=== PATIENT | female | born 1985 | race Caucasian/White ===

== ENCOUNTER 2016-02-12 04:58 | Inpatient (IN) | payer BC, OTHER ==
[2016-02-12] MEDS ORDERED: LACTATED RINGERS 1,000 ML IV ONE (05:50)
[2016-02-12] MEDS ORDERED: CITRIC ACID-SODIUM CITRATE 15 ML CUP PO ONE (05:50)
[2016-02-12] MEDS ORDERED: LACTATED RINGERS 1,000 ML IV SCH (06:00)
[2016-02-12] MEDS ORDERED: ceFAZolin 1,000 MG VIAL ONE (06:00)
[2016-02-12] MEDS ORDERED: ONDANSETRON 4 MG/2 ML VIAL ONE (06:00)
[2016-02-12] MEDS ORDERED: PROPOFOL 10 MG/ML 20 ML VIAL IV ONE (06:00)
[2016-02-12] MEDS ORDERED: LIDOCAINE 1% INJ 10MG/ML (20 ML MDV) ONE (06:00)
[2016-02-12] MEDS ORDERED: fentaNYL (PF) 50 MCG/ML 2 ML AMP ONE (06:00)
[2016-02-12] MEDS: LACTATED RINGERS 1,000 ML IV SCH ×3 (06:00→18:33)
[2016-02-12] MEDS ORDERED: SUCCINYLCHOLINE CHLORIDE 100 MG/5 ML SYR IV ONE (06:00)
[2016-02-12] MEDS ORDERED: PHENYLEPHRINE-0.9% NACL SYG 1 MG/10 ML SYRINGE ONE (06:00)
[2016-02-12] MEDS ORDERED: KETOROLAC 30 MG/ML 1 ML VIAL ONE (06:00)
[2016-02-12] MEDS ORDERED: OXYTOCIN 10 UNIT/ML 1 ML VIAL IM ONE (06:00)
[2016-02-12 06:15] LABS: CH 29.5; CHCM 32.8; HCT 33.4 % (34.0-46.0); HDW 2.65; HGB 10.7 gm/dL (11.4-16.0); MCH 28.8 pg (25.0-35.0); MCHC 31.9 g/dL (31.0-37.0); MCV 90.4 fL (80.0-100.0); RDW 12.9 % (11.5-15.5); WBC 13.9 k/uL (3.8-10.6)
[2016-02-12 06:58] LABS: Appearance,Urine Clear (Clear); Bilirubin,Urine Negative (Negative); Glucose,Urine (UA) Negative (Negative); Ketones,Urine Negative (Negative); Leukocyte Esterase,Urine Negative (Negative); Nitrite,Urine Negative (Negative); Protein,Urine Negative (Negative); Specific Gravity,Urine 1.004 (1.001-1.035); UA Billing (MACRO vs. MICRO) CHEM; Urobilinogen,Urine <2.0 mg/dL (<2.0)
--- NOTE | 2016-02-12 07:00 | P.HPOB ---
History of Present Illness H&P Date: 02/12/16 Chief Complaint: Abdominal pain and vaginal bleeding at 26 weeks This is a 31-year-old 9 para 6125 woman who presents complaining of 2 hours of severe abdominal pain and vaginal bleeding. She has an estimated due date of 05/20/2016 based on an 18 week ultrasound. She had late care. She has received care prior to this from Dr. Vivar at [facility]. She reports having had the flu and several of her children in the house being sick over the last week and when she began to have abdominal pain she thought it was secondary to GI distress. When she began having light vaginal bleeding she called EMS who transported her to the hospital. On initial evaluation on labor and delivery triage she does appear to be valeria irregularly and is uncomfortable. Examination reveals tense bulging bag of fluids entirely filling the vagina. The cervix is not palpable beyond this. Bedside ultrasound reveals infant to be in the complete breech presentation. Her obstetric history is significant for 6 prior term vaginal deliveries the most recent of which was in March 2015. Unfortunately this infant at 3 months of life from "aspiration". Patient reports history of fibromyalgia, arthritis, scoliosis and degenerative disks in her back. She was taking Percocet, Flexeril and Neurontin when she found out she was . She has been trying to wean off of these medications. Review of Systems All systems: negative Past Medical History Past Medical History: Fibromyalgia, Osteoarthritis (OA) Additional Past Medical History / Comment(s): back problems, degnerating discs, neuropathy, carple tunnel, manic depressive disorder,herniated disks History of Any Multi-Drug Resistant Organisms: None Reported Past Surgical History: Orthopedic Surgery, Tonsillectomy Past Anesthesia/Blood Transfusion Reactions: No Reported Reaction Past Psychological History: Anxiety, Bipolar, Depression Smoking Status: Current every day smoker Past Alcohol Use History: None Reported Past Drug Use History: Marijuana, Opiates, Prescription Drug Abuse - Past Family History Mother Family Medical History: Hypertension, Osteoarthritis (OA) Father Family Medical History: Unable to Obtain Medications and Allergies Home Medications Medication Instructions Recorded Confirmed Type Gabapentin [Gabapentin] 1 tab PO BID 06/27/15 06/27/15 History clonazePAM [KlonoPIN] 1 mg PO BID PRN 06/27/15 06/27/15 History oxyCODONE HCL/ACETAMINOPHEN 1 tab PO QID PRN 06/27/15 06/27/15 History [Percocet 10-325 mg] Allergies Allergy/AdvReac Type Severity Reaction Status Date / Time clarithromycin [From Biaxin] Allergy Rash/Hives Verified 02/12/16 05:09 methylprednisolone Allergy Rash/Hives Verified 02/12/16 05:09 [From Medrol] Exam - Vital Signs Vital signs: Intake and Output 02/11/16 02/11/16 02/12/16 14:59 22:59 06:59 Other: Weight 210 kg Patient Weight 02/12/16 06:59 Weight 210 kg This is an uncomfortable-appearing, distraught female. HEENT exam reveals poor dentition. She has a raspy cough. Lungs are clear anteriorly. The heart is a regular rate and rhythm. The abdomen is gravid with a fundal height approximately 2 cm above the umbilicus. Palpable contractions every 2-4 minutes. The uterus is nontender. She has a small amount of bloody show on pelvic examination. On bimanual exam there is a very tense bulging bag of fluids in the vagina that is completely filling the vagina. I cannot tell if the cervix is completely dilated or if the tense bag is hourglassing through the cervix. Bedside ultrasound reveals in the complete breech presentation with head and feet at the maternal right upper quadrant. On ultrasound it appears as though the cervix may not be completely dilated and membranes are hourglassing through the cervix that may be 3-4 cm dilated. heart tones show a baseline of approximately 150 bpm with intermittent variable heart rate decelerations. Results Result Diagrams: 02/12/16 06:05 Abnormal Lab Results - Last 24 Hours (Table) 02/12/16 Range/Units 06:05 WBC 13.9 H (3.8-10.6) k/uL RBC 3.70 L (3.80-5.40) m/uL Hgb 10.7 L (11.4-16.0) gm/dL Hct 33.4 L (34.0-46.0) % Assessment and Plan (1) 26 weeks gestation of Status: Acute (2) Breech presentation Status: Acute (3) labor Status: Acute (4) Insufficient care Status: Acute Plan: This is a 31-year-old 9 para 6125 woman who presents at 26-0/7 weeks gestation in spontaneous labor. is in the complete breech presentation. Patient is counseled regarding the precarious nature of the situation at this gestational age. The technical services analyst and anesthesiologist have been notified. I recommended primary low transverse section, although assessment of the low uterine segment at the time of may necessitate a classical section. Basic risks of the procedure reviewed with the patient at the bedside including bleeding, transfusion and potential maternal or injury. I also reviewed with her at this gestational age that once the infant is stabilized he or she will be transferred to a tertiary care facility. Laboratory data is currently pending.
[2016-02-12] MEDS ORDERED: NALOXONE 0.4 MG/ML 1 ML VIAL IV PRN (07:06)
[2016-02-12] MEDS ORDERED: ACETAMINOPHEN TAB 325 MG TAB PO PRN (07:08)
[2016-02-12] MEDS ORDERED: diphenhydrAMINE 50 MG/ML 1 ML VIAL IVP PRN ×2 (07:08)
[2016-02-12] MEDS ORDERED: Acetaminophen-Codeine 300-30mg TAB PO PRN ×2 (07:08)
[2016-02-12] MEDS ORDERED: ZOLPIDEM 5 MG TAB PO PRN (07:08)
[2016-02-12] MEDS ORDERED: diphenhydrAMINE 25 MG CAP PO PRN (07:08)
[2016-02-12] MEDS ORDERED: diphenhydrAMINE 50 MG CAP PO PRN (07:08)
[2016-02-12] MEDS ORDERED: METOCLOPRAMIDE 5 MG/ML 2 ML VIAL IVP PRN (07:08)
--- NOTE | 2016-02-12 07:13 | P.OP ---
Date of Procedure: 02/12/16 Preoperative Diagnosis: labor at 26-0/7 weeks Breech presentation Vaginal bleeding Postoperative Diagnosis: Same Procedure(s) Performed: Primary low transverse section Anesthesia: SAMREEN Surgeon: Faiza Oneill Sorting Cows Worker #1: Uche Saldana Estimated Blood Loss (ml): 500 IV fluids (ml): 1,000 Urine output (ml): 200 Pathology: other (Placenta) Condition: stable Disposition: floor Indications for Procedure: Advanced labor at 26-0/7 weeks gestation, breech presentation Operative Findings: Female infant in the complete breech presentation. Gestational age appears to be significantly less then 26 weeks. The is taken immediately to special care nursery. Apgars and weight not assigned at this time. Amniotic fluid appeared clear there was no evidence of active abruption. Otherwise normal-appearing uterus bilateral fallopian tubes and ovaries. Description of Procedure: After the patient was counseled in the triage area, she was transported to the operating room where general anesthetic was administered without incident. She previously been positioned, prepped and draped in the dorsal lithotomy position with a leftward tilt. Following induction of general anesthetic a low transverse skin incision was made and was carried down sharply to the underlying fascia. The fascia was incised in the midline and extended bilaterally with the Beebe scissors. The superior aspect of the fascial incision was elevated and the underlying rectus muscles dissected off sharply. The inferior aspect of the fascial incision was also elevated and the underlying rectus muscles dissected off sharply. The rectus muscles were then bluntly in the midline and the peritoneal cavity was entered bluntly. The peritoneal incision was extended bluntly. The bladder blade was placed. The vesicouterine peritoneum was identified, tented up and entered sharply. The bladder was dissected out of the field. Assessment of the mid to lower uterine segment was that this was adequate therefore he transverse incision was made. The uterus was entered and the amniotic membranes were ruptured. Clear fluid was noted. The uterine incision was extended bilaterally bluntly. The infant was delivered out of the complete breech presentation without difficulty. The cord was clamped and cut and the infant was taken to the special care nursery immediately. The placenta was manually removed. The uterus was exteriorized and cleared of all clot and debris. The uterine incision was delineated with Romero clamps. The uterus was closed in a running locked fashion with 0 Vicryl suture. A second imbricating layer of the same suture was then placed. The uterus was observed and an additional figure- of-eight stitch was placed at the left aspect of the incision. The uterus was returned to the abdomen and the gutters were cleared of all clot and debris. The uterine incision appeared hemostatic. The rectus muscles peritoneal edges and fascial edges were inspected and noted to be hemostati. The peritoneum and rectus muscles were reapproximated in the midline with 0 Vicryl suture. The fascia was then closed in a running fashion with 0 Vicryl suture. The subcuticular tissue was copiously suction irrigated and reapproximated with chromic. The skin was then closed in a subcutaneous fashion with 4-0 Vicryl suture. All counts reported to me as correct by the operating room staff and the patient was awoken from anesthetic and transported to recovery in stable condition.
[2016-02-12] MEDS ORDERED: OXYTOCIN 30 UNITS/500 ML NS 30 UNIT in SALINE 1 500ML.BAG IV SCH (07:15)
[2016-02-12] MEDS: HYDROmorphone PCA 5 MG/25 ML SYRINGE IV PRN ×8 (07:17→23:56)
[2016-02-12 07:32] VITALS: BMI 71.4
[2016-02-12 08:13] LABS: Glucose 123 mg/dL (74-99)
[2016-02-12 08:45] LABS: Hepatitis B Surface Ag Index 0.06
[2016-02-12] MEDS: guaiFENesin-DM 600/30MG 1 EACH TAB.ER.12H PO PRN (08:52)
[2016-02-12] MEDS: SENNOSIDES-DOCUSATE SODIUM 1 EACH TAB PO SCH ×2 (09:55→20:14)
[2016-02-12] MEDS: ceFAZolin 2 GM in SODIUM CHLORIDE 0.9% 100 ML IVPB SCH ×2 (09:55→16:13)
[2016-02-12] MEDS: KETOROLAC 30 MG/ML 1 ML VIAL IVP PRN ×2 (12:15→18:31)
[2016-02-13] MEDS: KETOROLAC 30 MG/ML 1 ML VIAL IVP PRN ×2 (00:08→07:30)
[2016-02-13] MEDS: LACTATED RINGERS 1,000 ML IV SCH ×3 (02:45→23:20)
[2016-02-13] MEDS: HYDROmorphone PCA 5 MG/25 ML SYRINGE IV PRN ×3 (02:46→09:19)
[2016-02-13] MEDS: guaiFENesin-DM 600/30MG 1 EACH TAB.ER.12H PO PRN ×2 (04:01→16:07)
[2016-02-13] MEDS: SENNOSIDES-DOCUSATE SODIUM 1 EACH TAB PO SCH ×2 (07:32→19:58)
[2016-02-13 07:43] LABS: Basophils % (A) 0 %; CH 29.6; CHCM 32.5; Eosinophils # (A) 0.1 k/uL (0-0.7); Eosinophils % (A) 1 %; HCT 26.4 % (34.0-46.0); HDW 2.65; Luc # (Auto) 0.05; Luc % (Auto) 1; Lymphocytes # (A) 1.9 k/uL (1.0-4.8); Lymphocytes % (A) 20 %; MCH 29.1 pg (25.0-35.0); MCHC 31.8 g/dL (31.0-37.0); MCV 91.5 fL (80.0-100.0); Mean Platelet Volume 8.5; Monocytes # (A) 0.4 k/uL (0-1.0); Monocytes % (A) 4 %; Neutrophils # (A) 7.1 k/uL (1.3-7.7); Neutrophils % (A) 74 %; RBC 2.89 m/uL (3.80-5.40); WBC 9.6 k/uL (3.8-10.6); WBC (Perox) 9.71
[2016-02-13 07:44] LABS: HGB 8.4 gm/dL (11.4-16.0)
--- NOTE | 2016-02-13 10:57 | P.PNOBGPC ---
Subjective - Subjective Principal diagnosis: Postop day 1 Interval history: Complaining of inadequate pain control. She reports discussion with [facility] reveals is currently stable. Patient reports: Reports appetite normal, Reports voiding normally, Reports pain poorly controlled, Reports ambulating normally, Denies nauseated : transported Objective - Vital Signs Latest vital signs: Vital Signs Temp Pulse Resp BP Pulse Ox 02/13/16 07:54 98.3 F 60 18 113/73 02/13/16 04:00 98.1 F 73 14 115/67 02/13/16 00:00 98.4 F 71 14 122/80 02/12/16 20:00 98.2 F 70 16 109/71 02/12/16 16:00 98.1 F 70 16 101/67 96 02/12/16 12:00 98.2 F 64 16 111/70 96 02/12/16 11:37 100 Intake and Output 02/12/16 02/13/16 02/13/16 22:59 06:59 14:59 Output Total 1100 150 Balance -1100 -150 Output: Urine 1100 150 Uretheral (Cervantes) 950 Other: # Voids 1 - Exam Extremities: Present: normal. Absent: edema Abdomen: Present: normal appearance, soft, tenderness Incision: Present: normal, dry, intact Uterus: Present: normal, firm, tenderness - Labs Labs: Abnormal Lab Results - Last 24 Hours (Table) 02/13/16 Range/Units 07:10 RBC 2.89 L (3.80-5.40) m/uL Hgb 8.4 L D (11.4-16.0) gm/dL Hct 26.4 L (34.0-46.0) % Assessment and Plan (1) 26 weeks gestation of Current Visit: Yes Status: Acute Code(s): Z3A.26 - 26 WEEKS GESTATION OF SNOMED Code(s): 45340536 (2) Breech presentation Current Visit: Yes Status: Acute Code(s): O32.1XX0 - MATERNAL CARE FOR BREECH PRESENTATION, UNSP SNOMED Code(s): 8723884 (3) labor Current Visit: Yes Status: Acute Code(s): O60.00 - LABOR WITHOUT DELIVERY, UNSPECIFIED TRIMESTER SNOMED Code(s): 0091805 (4) Insufficient care Current Visit: Yes Status: Acute Code(s): O09.30 - SUPRVSN OF PREG W INSUFFICIENT ANTENAT CARE, UNSP TRIMESTER SNOMED Code(s): 4739563989831 (5) Delivered by section Narrative/Plan: Postoperative day 1 status post primary low transverse section at approximately 26 weeks gestation for labor and breech presentation. She is a long history of pain medication use for chronic pain. Her pain control has been difficult here. She will be resumed on oral pain medications consistent with her home meds. Likely discharge home tomorrow. Current Visit: Yes Status: Acute Code(s): O82 - ENCOUNTER FOR DELIVERY WITHOUT INDICATION SNOMED Code(s): 756267326
[2016-02-13] MEDS: oxyCODONE-APAP 10-325MG 1 EACH TAB PO PRN ×4 (11:55→23:46)
[2016-02-13] MEDS: IBUPROFEN 600 MG TAB PO PRN ×2 (14:03→22:36)
[2016-02-13 16:36] VITALS: RESP 16
[2016-02-14 03:16] LABS: HIV-1/HIV-2 Ab Screen NONREAC (NON REAC)
[2016-02-14] MEDS: oxyCODONE-APAP 10-325MG 1 EACH TAB PO PRN ×2 (03:50→08:07)
[2016-02-14] MEDS: SENNOSIDES-DOCUSATE SODIUM 1 EACH TAB PO SCH (08:09)
[2016-02-14 08:11] VITALS: BP 136/84; PULSE 68; TEMP 97.7
--- NOTE | 2016-02-14 09:42 | P.DS ---
Providers Date of admission: 02/12/16 05:30 Expected date of discharge: 02/14/16 Attending physician: Faiza Oneill Primary care physician: Faiza Oneill - Discharge Diagnosis(es) (1) 26 weeks gestation of Current Visit: Yes Status: Acute (2) Breech presentation Current Visit: Yes Status: Acute (3) labor Current Visit: Yes Status: Acute (4) Insufficient care Current Visit: Yes Status: Acute (5) Delivered by section Current Visit: Yes Status: Acute Hospital Course: This is a 31-year-old 9 now para 6 woman who presented in the advanced labor at 26-0/7 weeks gestation. Amniotic membranes were bulging and filling the entire vagina. The was found to be breech on ultrasound. She underwent a low transverse section and findings at the time of surgery were significant for a severely premature, likely less than 26 week male infant. The infant was stabilized here and transported to the hospital. The patient's postoperative course was unremarkable. She does have a history of chronic back pain and arthritis which made pain control difficulty. Her pain was initially controlled using a OIL HEAT TECHNICIAN device and she was then transitioned to oral Percocet as this is what she takes at home for her pain. Her postop day 1 vital signs and hemoglobin were stable. And her incision appeared well healing. By postoperative day #2 her lochia had an entirely stopped and her incision continued to look well healing. She did continue to complain of some pain despite her Percocet. She reports being on multiple other medications for her fibromyalgia and pain while at home. She has plans to follow up with her regular doctor in 1 week for resumption of these medications. She is anxious for discharge from hospital in order to go to [facility] to follow-up with the baby. Procedures: Primary low transverse section Patient Condition at Discharge: Good Plan - Discharge Summary New Discharge Prescriptions: oxyCODONE-APAP 10-325MG [Percocet 10-325 mg] 1 each PO Q4H PRN #30 tab PRN Reason: Pain Discharge Medication List oxyCODONE-APAP 10-325MG [Percocet 10-325 mg] 1 each PO Q4H PRN #30 tab 02/14/16 [Rx] Follow up Appointment(s)/Referral(s): Russel Vivar DO [REFERRING] - 2 Weeks Activity/Diet/Wound Care/Special Instructions: Follow-up in 2 weeks after surgery in the office. Call the office with any concerning signs or symptoms including fever greater than 101, severe abdominal pain, heavy vaginal bleeding, signs of wound infection, increased swelling or redness of the lower extremities, signs of depression. No driving for 2 weeks after surgery. No heavy lifting or vigorous activity until reevaluated in the office. No intercourse for 6 weeks after delivery. Discharge Disposition: HOME SELF-CARE
== END 2016-02-14 10:45 | disposition home or self-care (01) | DRG 765 ==
LOC: FBPOP 04:58 → 4FBP 05:30
PROVIDERS: ADMIT Obstetrics & Gynecology; ATTEND Obstetrics & Gynecology
PROC: 3E0S3NZ Introduction of Analgesics, Hypnotics, Sedatives into Epidural Space, Percutaneous Approach (ICD-10-PCS; 2016-02-12)
PROC: 10D00Z1 Extraction of Products of Conception, Low, Open Approach (ICD-10-PCS; principal; 2016-02-12 05:59)
DX: O32.1XX0 Maternal care for breech presentation, not applicable or unspecified (principal); O60.12X0 Preterm labor second trimester with preterm delivery second trimester, not applicable or unspecified; O99.322 Drug use complicating pregnancy, second trimester; G62.9 Polyneuropathy, unspecified; M41.9 Scoliosis, unspecified; F31.9 Bipolar disorder, unspecified; O76 Abnormality in fetal heart rate and rhythm complicating labor and delivery; F17.200 Nicotine dependence, unspecified, uncomplicated; O99.344 Other mental disorders complicating childbirth; O26.892 Other specified pregnancy related conditions, second trimester; O99.334 Smoking (tobacco) complicating childbirth; G56.00 Carpal tunnel syndrome, unspecified upper limb; F12.10 Cannabis abuse, uncomplicated; F11.10 Opioid abuse, uncomplicated; F41.9 Anxiety disorder, unspecified; O09.32 Supervision of pregnancy with insufficient antenatal care, second trimester; G89.29 Other chronic pain; M54.9 Dorsalgia, unspecified; M79.7 Fibromyalgia; R05 Cough; M19.90 Unspecified osteoarthritis, unspecified site; Z82.49 Family history of ischemic heart disease and other diseases of the circulatory system; Z79.891 Long term (current) use of opiate analgesic; Z79.899 Other long term (current) drug therapy; Z88.1 Allergy status to other antibiotic agents; Z37.0 Single live birth; Z3A.26 26 weeks gestation of pregnancy; Z88.8 Allergy status to other drugs, medicaments and biological substances; Z63.79 Other stressful life events affecting family and household; Z86.19 Personal history of other infectious and parasitic diseases; Z82.61 Family history of arthritis
CPT/HCPCS: 80306; 81003; 82947; 85025; 85027; 86762; 86850; 86900; 86901; 87340; 87389; 88305; 99213